=== PATIENT | female | born 1950 | race Caucasian/White ===

== ENCOUNTER 2017-12-28 12:55 | Outpatient (CLI) | payer OTHER | END 2017-12-28 12:56 | disposition home or self-care (01) | LOC: RHC-LAB 12:55 | PROVIDERS: ATTEND Family Medicine | DX: R53.81 Other malaise (principal); R53.83 Other fatigue; E78.5 Hyperlipidemia, unspecified; Z68.38 Body mass index [BMI] 38.0-38.9, adult; Z12.11 Encounter for screening for malignant neoplasm of colon | CPT/HCPCS: 36415; 80053; 80061; 84443; 85025 ==

== ENCOUNTER 2017-12-29 08:32 | Outpatient (CLI) | payer OTHER ==
--- NOTE | 2017-12-30 08:15 | MAMMO ---
EXAM: Digital screening mammogram with 3-D tomosynthesis and CAD HISTORY: Screening mammogram. COMPARISON: Mammogram 10/07/2011 FINDINGS: Mammogram demonstrates scattered fibroglandular breast density. There is no abnormality id entified on CAD. Benign bilateral calcifications are present. There is no new or suspicious calcifi cation or mass. There has been no significant interval change. IMPRESSION: No new or suspicious calcification or mass Recommendations: Annual screening mammogram. BIRADS category II: Benign findings
== END 2017-12-29 08:33 | disposition home or self-care (01) ==
LOC: RAD 08:32
PROVIDERS: ATTEND Family Medicine
DX: Z12.31 Encounter for screening mammogram for malignant neoplasm of breast (principal)
CPT/HCPCS: 77067

== ENCOUNTER 2019-04-12 07:57 | Outpatient (CLI) | END 2019-04-12 07:58 | disposition home or self-care (01) | LOC: RHC-LAB 07:57 | PROVIDERS: ATTEND Nurse Practitioner Family | DX: Z12.31 Encounter for screening mammogram for malignant neoplasm of breast (principal); E66.9 Obesity, unspecified; F41.9 Anxiety disorder, unspecified | CPT/HCPCS: 36415; 80053; 80061; 84443; 85025 ==